=== PATIENT | female | born 2000 | race Hispanic/Latino ===

== ENCOUNTER 2020-10-29 22:31 | Inpatient (IN) | payer MEDICAID, OTHER, SELFPAY ==
[2020-10-29 23:03] VITALS: BMI 29.0
--- NOTE | 2020-10-29 23:38 | PDOC.FPROB ---
FMR OB H&P: HPI - History of Present Illness Chief Complaint: ctx Indentification: 20yo @ 39.1 by LMP c/w 11.2wk sono History of Present Illness: 20yo @ 39.1 by LMP c/w 11.2wk sono presents for contractions. Patient states onset of ctx about 24 hours, about q10min, moderate intensity. Intensity and frequency have not changed since onset. Endorses mucous vaginal discharge with dark spotting. No kenny vaginal bleeding. No dysura, fever/chills, CP, SOB, vision changes, MADRIGAL. Endorses good movement. Has not drank much fluids today. Has scheduled IOL on 11/02. Was 2cm in clinic earlier this week. Primary Care Physician: Geo FMR OB H&P: Current - Care : 2 Para: 1001 Gestational age: 39.1 Due date: 11/04/20 Dating Criteria: LMP c/w 11.2wk sono - OB Labs Blood type: O RH: positive Antibody Screen: negative HIV: negative RPR: negative HepBsAg: negative Rubella: immune Urine drug screen: negative Gonorrhea: negative Chlamydia: negative Pap Smear: negative GBS: unknown FMR OB H&P: History - Past Medical History PMH: Denies - OB History OB History: Previous without complications in [place] - CARDIAC CATH TECH History CARDIAC CATH TECH History: Denies, No history of STDs - Surgical History Sx History: None - Social History Social History: Denies tob, EtOH, illicits - Family History Family History: Denies FMR OB H&P: Medications - Current Home Medications: Medication Instructions Recorded Confirmed Type Vitamin 1 tablet PO DAILY 10/29/20 10/29/20 History Allergies/Adverse Reactions: Allergies Allergy/AdvReac Type Severity Reaction Status Date / Time No Known Allergies Allergy Verified 10/29/20 22:56 FMR OB H&P: ROS - Review of Systems General: denies: fever/chills, weight/appetite/sleep changes Eyes: denies: vision changes, double vision ENT: denies: nasal congestion, rhinorrhea Cardiovascular: denies: chest pain, palpitation, edema Respiratory: denies: cough, congestion, shortness of breath Gastrointestinal: denies: abdominal pain, nausea, vomiting, diarrhea, constipation Genitourinary (Female): reports: contractions. denies: dysuria, hematuria, vaginal discharge, vaginal bleeding Neurologic: denies: numbness Integumentary: denies: rash FMR OB H&P: Vital Signs - Maternal Vital signs: T 98.2. RR 14, BP 124/72, HR 103 - Heart Tones Baseline: 150 Variability: moderate Acceleration: present Deceleration: variable (recurrent) Category: category 2 Neville contractions every: q7min FMR OB H&P: Physical Exam - Physical Exam General: NAD, awake, alert and oriented, other (uncomfortable with ctx) HEENT: EOMI, MMM, conjunctiva clear Neck: supple, trachea midline Heart: RRR, normal S1/S2, no murmurs/rubs/gallops, no edema General: CTAB, no respiratory distress, good air movement, no rales/rhonchi, no wheezing Abdomen: soft, gravid, non-tender, bowel sound present Musculoskeletal: FROM in all four extremities Neurological: no focal deficit Psychiatric: intact recent and remote memory, good judgement and insight, normal mood and affect - Pelvic Exam SVE: /-3 FMR OB H&P: A/P - Problem List (1) Term Current Visit: Yes Status: Acute Code(s): Z34.90 - ENCNTR FOR SUPRVSN OF NORMAL , UNSP, UNSP TRIMESTER Disposition: 20yo @ 39.1 by LMP c/w 11.2wk sono presents for contractions. #Term SIUP, contractions in setting of Cat 2 FHT - SVE at admission /-3 - Cat 2 FHT with recurrent variables, moderate variability, baseline 150, accels - ctx q7min - GBS unknown - Uncomplicated thus far. Previous . - Begin IVF and continuous monitoring - Will admit for labor and notify PCP IVF: LR @ 125cc/hr Diet: Liquids VTE: None PCP: Geo Dispo: Admit to L&D for labor due to term with cat 2 FHT. Will start IVF, continuous monitoring. Will notify PCP and determine GBS status. Discussion: Date/Time: 10/29/20 1332 This H&P was discussed with Dr. Robertson agrees with the above documentation and plan.
[2020-10-29] MEDS ORDERED: Lactated Ringer's 1,000 ML IV SCH (23:45)
[2020-10-29] MEDS ORDERED: Ondansetron PF 4 MG/2 ML Vial IVP PRN (23:53)
[2020-10-29] MEDS ORDERED: hydrALAZINE 20 MG/ML VIAL SLOW IVP PRN (23:53)
[2020-10-29] MEDS ORDERED: NS / Oxytocin 40 units/1000ml 1,000 ML IV PRN (23:53)
[2020-10-29] MEDS ORDERED: Promethazine HCl 25 MG/ML VIAL IM PRN (23:53)
[2020-10-29] MEDS ORDERED: Acetaminophen 500 MG TAB PO PRN (23:53)
[2020-10-29] MEDS ORDERED: Lidocaine 1% (PF) 30 ML VIAL SC PRN (23:53)
--- NOTE | 2020-10-30 00:11 | HP ---
TIME: It is 2337 hours. Time of first evaluation 2320 hours. LOCATION: Labor and Delivery. The patient of Dr. Guardado. CHIEF COMPLAINT: Possible contractions at 39 weeks. HISTORY OF PRESENT ILLNESS: This is a 20-year-old, G2, P1 with a previous vaginal delivery in [place], who sees Dr. Guardado for care, who now presents with possible contractions about every 10 minutes. She denies leakage of fluid or vaginal bleeding, and she has good movement. She denies any issues. She denies any recent trauma. She states that her has been otherwise uncomplicated. REVIEW OF SYSTEMS: Complete review of systems was performed and is otherwise negative unless specified in the HPI. GENERAL: No fever. No chills. No sick contacts. PULMONARY: No shortness of breath. CARDIOVASCULAR: No chest pain. NEUROLOGIC: No headache. No visual changes. EXTREMITIES: No unusual leg swelling or calf pain. PAST MEDICAL HISTORY: Negative. MEDICATIONS: vitamins. ALLERGIES: NONE. PAST OB HISTORY: She has had a vaginal delivery x1. Important to note that her GBS status is unknown. SOCIAL HISTORY: Negative for alcohol, tobacco, or drug use. FAMILY HISTORY: Noncontributory. PHYSICAL EXAMINATION: VITAL SIGNS: Blood pressure is 124/72, pulse of 103. She is afebrile. Temperature is 98.2. Respirations are unlabored. GENERAL: She is in no acute distress, but apparently is having some contraction discomfort. PELVIC: Uterus is soft and nontender and size appropriate. Pelvic exam reveals a cervix of 2 cm dilation, 50% effacement, -3 station. Bag of tian seems to be intact. There is no vaginal bleeding. External monitors: heart tones are in the 150s with moderate variability, but there are some small variable D cells with the contractions. Tocodynamometer shows contractions that were irregular, about every 10 minutes or so. ASSESSMENT: This is a 20-year-old, G2, P1 at full-term (39 weeks and 1 day), patient of Dr. Guardado, with latent labor. As she is full-term and with the variable decelerations, in the presence of contractions, we will admit her for labor. PLAN: 1. Admission. 2. Notify Dr. Guardado. 3. If we do not find her GBS results, then we will use risk factors for prophylaxis (currently there are none). 4. Pitocin if needed. 5. Again, the reason for keeping the patient is for latent labor with category II heart tones due to mild variable decelerations with moderate variability. We will follow closely. Job ID: [id number]
[2020-10-30 00:40] LABS: Hemoglobin 14.6 g/dL (12.0-16.0); Mean Corpuscular HGB CONC 34.7 g/dL (32.0-36.0); Mean Corpuscular Volume 92.1 fL (78.0-98.0); Mean Platelet Volume 9.6 fL (7.4-10.4); Platelet Count 148 thou/uL (130-400); RBC Distribution Width 12.7 % (11.5-14.5); Red Blood Cell (RBC) Count 4.56 mill/uL (4.20-5.40); White Blood Cell (WBC) Count 11.8 thou/uL (4.8-10.8)
[2020-10-30 01:17] LABS: Syphilis Antibody Nonreactive (Nonreactive); Syphilis Antibody Index 0.03 S/CO (<1.00 Non-Reactive)
[2020-10-30 01:18] LABS: HBSAg Index 0.16 S/CO (0-0.99); Hep B Surf Ag Non-Reactive S/CO (NonReactive)
== END 2020-10-30 09:10 | disposition home health service (06) | DRG 833 ==
LOC: L&D/OP 22:31 → L&D 23:53
PROVIDERS: ADMIT Family Medicine; ATTEND Family Medicine
DX: O47.9 False labor, unspecified (principal); Z3A.39 39 weeks gestation of pregnancy; O36.8330 Maternal care for abnormalities of the fetal heart rate or rhythm, third trimester, not applicable or unspecified
CPT/HCPCS: 36415; 85027; 86780; 86850; 86900; 86901; 87340; 99285

== ENCOUNTER 2020-10-31 03:58 | Inpatient (IN) | payer MEDICAID, OTHER, SELFPAY ==
[2020-10-31 04:24] VITALS: BMI 29.0
[2020-10-31] MEDS ORDERED: Acetaminophen 500 MG TAB PO PRN (04:28)
[2020-10-31] MEDS ORDERED: Ibuprofen 800 MG TAB PO PRN (04:28)
[2020-10-31] MEDS ORDERED: Docusate 100 MG CAP PO PRN (04:28)
[2020-10-31] MEDS ORDERED: Misoprostol 200 MCG TAB PR PRN (04:28)
[2020-10-31] MEDS ORDERED: NS / Oxytocin 40 units/1000ml 1,000 ML IV PRN (04:28)
[2020-10-31] MEDS ORDERED: Butorphanol Tartrate 1 MG/ML VIAL SLOW IVP PRN (04:28)
[2020-10-31] MEDS ORDERED: Promethazine HCl 25 MG/ML VIAL IM PRN ×2 (04:28→11:49)
[2020-10-31] MEDS ORDERED: hydrALAZINE 20 MG/ML VIAL SLOW IVP PRN ×2 (04:28→11:49)
[2020-10-31] MEDS ORDERED: Lidocaine 1% (PF) 30 ML VIAL SC PRN (04:28)
[2020-10-31] MEDS ORDERED: Ondansetron PF 4 MG/2 ML Vial IVP PRN ×2 (04:28→11:49)
[2020-10-31] MEDS ORDERED: Lactated Ringer's 1,000 ML IV SCH (04:30)
[2020-10-31 04:50] LABS: Hemoglobin 14.3 g/dL (12.0-16.0); Mean Corpuscular Hemoglobin 31.4 pg (27.0-31.0); Mean Corpuscular Volume 92.4 fL (78.0-98.0); Mean Platelet Volume 9.5 fL (7.4-10.4); Platelet Count 149 thou/uL (130-400); RBC Distribution Width 12.8 % (11.5-14.5); Red Blood Cell (RBC) Count 4.55 mill/uL (4.20-5.40); White Blood Cell (WBC) Count 10.5 thou/uL (4.8-10.8)
[2020-10-31 05:27] LABS: HBSAg Index 0.13 S/CO (0-0.99); Hep B Surf Ag Non-Reactive S/CO (NonReactive)
[2020-10-31 05:28] LABS: Syphilis Antibody Nonreactive (Nonreactive); Syphilis Antibody Index 0.02 S/CO (<1.00 Non-Reactive)
[2020-10-31] MEDS: NS w/ Oxytocin 30 units 500 ML IVPB PRN ×2 (09:01→09:50)
[2020-10-31] MEDS ORDERED: HYDROcodone/Acetaminophen 5/325 mg Tablet PO PRN ×2 (11:49)
[2020-10-31] MEDS ORDERED: Benzocaine-Menthol 82.5 ML CAN TOP PRN (11:49)
[2020-10-31] MEDS ORDERED: Adacel (T-DAP) 0.5 ML SYRINGE IM ONE (11:49)
[2020-10-31] MEDS ORDERED: Milk Of Magnesia 30 ML UDCUP PO PRN (11:49)
[2020-10-31] MEDS ORDERED: Lanolin Ointment 7 GM TUBE TOP PRN (11:49)
[2020-10-31] MEDS ORDERED: Bisacodyl 10 MG SUPP PR PRN (11:49)
[2020-10-31] MEDS ORDERED: diphenhydrAMINE 25 MG CAP PO PRN (11:49)
[2020-10-31] MEDS ORDERED: NS w/ Oxytocin 30 units 500 ML IVPB SCH (12:45)
[2020-10-31] MEDS ORDERED: Prenatal Vitamin 1 TAB PO SCH (13:00)
[2020-10-31] MEDS: Ibuprofen 800 MG TAB PO SCH ×2 (13:39→21:34)
[2020-10-31] MEDS ORDERED: Ferrous Sulfate 325 MG TAB PO SCH (17:00)
[2020-10-31] MEDS ORDERED: Docusate Calcium (SURFAK) 240 MG CAP PO SCH (21:00)
[2020-11-01] MEDS: Ibuprofen 800 MG TAB PO SCH (05:35)
[2020-11-01 08:12] VITALS: BP 111/66; TEMP 98.7
[2020-11-01] MEDS ORDERED: Prenatal Vitamin 1 TAB PO SCH (09:00)
== END 2020-11-01 13:10 | disposition home or self-care (01) | DRG 807 ==
LOC: L&D/OP 03:58 → L&D 04:28 → 3SW 11:54
PROVIDERS: ADMIT Family Medicine; ATTEND Family Medicine
PROC: 10E0XZZ Delivery of Products of Conception, External Approach (ICD-10-PCS; principal; 2020-10-31)
PROC: 0KQM0ZZ Repair Perineum Muscle, Open Approach (ICD-10-PCS; 2020-10-31)
PROC: 10907ZC Drainage of Amniotic Fluid, Therapeutic from Products of Conception, Via Natural or Artificial Opening (ICD-10-PCS; 2020-10-31)
DX: O77.0 Labor and delivery complicated by meconium in amniotic fluid (principal); Z37.0 Single live birth; Z3A.39 39 weeks gestation of pregnancy; O70.1 Second degree perineal laceration during delivery
CPT/HCPCS: 36415; 85027; 86780; 86850; 86900; 86901; 87340; 99285; J2590